=== PATIENT | male | born 1940 | race Caucasian/White ===

== ENCOUNTER 2023-09-03 06:12 | Inpatient (IN) | payer MEDICARE ==
[~2023-09-03] VITALS: Ht 167.6 cm; Wt 74.8 kg
[2023-09-03] VITALS (7 sets, daily range): BP systolic 132–157; BP diastolic 67–71; PULSE 81–96; RESP 18–20; TEMP 98.1–101.2; O2SAT 93–96
[~2023-09-03 06:12] MED LIST: AMLODIPINE BESY10 MG PO; ASPIRIN325 MG PO; COQ-10100 MG PO; FLOMAX0.4 MG PO; LIPITOR10 MG PO; Multi Vitamin PO; OMEPRAZOLE20 M1 PO; SYNTHROID100 MCG PO; VESICARE10 MG PO
[2023-09-03] MEDS ORDERED: SODIUM CHLORIDE 0.9% 1000ML 1,000 ML IV SCH (06:30)
[2023-09-03] MEDS ORDERED: KETOROLAC TROMETHAMINE 30 MG/ML VIAL IV STA (06:31)
[2023-09-03] MEDS ORDERED: SODIUM CHLORIDE 0.9% 1000ML 1,000 ML ONE (06:41)
[2023-09-03] MEDS ORDERED: CEFTRIAXONE 1 GM VIAL ONE (06:41)
[2023-09-03 06:43] LABS: BASOPHILS % 0.2 % (0.0-1.0); HEMATOCRIT 38.4 % (38.2-49.6); HEMOGLOBIN 13.2 g/dL (14.0-18.0); LYMPHOCYTES # (AUTO) 0.3 (1.0-3.2); LYMPHOCYTES % 2.9 % (18.0-39.1); MEAN CORPUSCULAR HEMOGLOBIN 31.5 pg (28-32); MEAN CORPUSCULAR HGB CONC 34.4 g/dL (31-35); MEAN CORPUSCULAR VOLUME 91.6 fL (81-99); MONOCYTES # (AUTO) 0.5 (0.2-0.8); MONOCYTES % 5.2 % (4.4-11.3); NEUTROPHILS # (AUTO) 8.6 (2.1-6.9); NEUTROPHILS % 91.2 % (38.7-80.0); PLATELET COUNT 149 x10e3/uL (140-360); RED BLOOD COUNT 4.19 x10e6/uL (4.3-5.7); RED CELL DISTRIBUTION WIDTH 13.8 % (11.7-14.4); WHITE BLOOD COUNT 9.41 x10e3/uL (4.8-10.8)
[2023-09-03] MEDS ORDERED: ACETAMINOPHEN 325 MG TAB PO ONE (06:45)
[2023-09-03 07:03] LABS: ALBUMIN 3.2 g/dL (3.5-5.0); ANION GAP 17.3 mmol/L (8-16); BILIRUBIN,TOTAL 1.6 mg/dL (0.2-1.2); CALCIUM 8.9 mg/dL (8.4-10.2); CREATININE, SERUM 1.54 mg/dL (0.72-1.25); POTASSIUM 3.3 mmol/L (3.5-5.1); TOTAL PROTEIN 6.5 g/dL (6.5-8.1)
[2023-09-03 09:00] LABS: BILIRUBIN,URINE NEGATIVE (NEGATIVE); CLARITY,URINE TURBID (CLEAR); COLOR,URINE YELLOW (YELLOW); GLUCOSE, URINE NEGATIVE (NEGATIVE); KETONES,URINE TRACE (NEGATIVE); LEUKOCYTE ESTERASE ,URINE MODERATE (NEGATIVE); NITRITE,URINE POSITIVE (NEGATIVE); PH,URINE 5.5 (5 - 7); PROTEIN,URINE DIPSTICK 2+ (NEGATIVE); URINE UROBILINOGEN 1 mg/dL (0.2 - 1)
[2023-09-03 09:03] LABS: BACTERIA,URINE MODERATE /HPF; EPITHELIAL CELLS,URINE FEW /LPF; WBC,URINE (MAN) >50 /HPF (0-5)
[2023-09-03] MEDS: SODIUM CHLORIDE 0.9% 1000ML 1,000 ML IV SCH ×3 (10:58→21:05)
[2023-09-03] MEDS ORDERED: EXCEDRIN MIGRA1 EAC3 (16:23)
[2023-09-03] MEDS ORDERED: ZEBETA10 MG PO (16:23)
[2023-09-03] MEDS ORDERED: MYRBETRIQ50 MG PO (16:23)
[2023-09-03] MEDS ORDERED: HYDROCHLOROTH12.5 MG PO (16:23)
[2023-09-03] MEDS ORDERED: PREDNISONE5 MG PO (16:23)
[2023-09-03] MEDS ORDERED: LIOTHYRONINE SO5 MCG PO (16:23)
[2023-09-03] MEDS ORDERED: PLAQUENIL200 MG PO (16:23)
[2023-09-03] MEDS ORDERED: POTASSIUM CHLORIDE 20 MEQ TAB CR PO ONE (17:25)
[2023-09-03] MEDS ORDERED: ACETAMINOPHEN 325 MG TAB PO PRN (21:00)
[2023-09-03] MEDS ORDERED: ONDANSETRON HCL INJ 2MG/ML 2ML 2 MG/ML VIAL IV PRN (21:00)
[2023-09-03] MEDS ORDERED: HYDRALAZINE HCL 20 MG/ML VIAL IV PRN (21:00)
[2023-09-03] MEDS: NIRMATRELVIR/RITONAVIR 1 EACH BOX PO SCH (21:05)
[2023-09-03] MEDS: HEPARIN SOD (PORCINE) 5,000 UNIT/ML VIAL SC SCH (21:14)
[2023-09-04] VITALS (8 sets, daily range): BP systolic 137–154; BP diastolic 65–75; PULSE 77–89; RESP 16–20; TEMP 98.9–101.2; O2SAT 93–99
[2023-09-04] MEDS: HEPARIN SOD (PORCINE) 5,000 UNIT/ML VIAL SC SCH ×3 (05:43→21:41)
[2023-09-04 06:18] LABS: BASOPHILS % 0.1 % (0.0-1.0); HEMATOCRIT 37.2 % (38.2-49.6); HEMOGLOBIN 12.7 g/dL (14.0-18.0); LYMPHOCYTES # (AUTO) 0.5 (1.0-3.2); LYMPHOCYTES % 7.3 % (18.0-39.1); MEAN CORPUSCULAR HEMOGLOBIN 31.6 pg (28-32); MEAN CORPUSCULAR HGB CONC 34.1 g/dL (31-35); MEAN CORPUSCULAR VOLUME 92.5 fL (81-99); MONOCYTES # (AUTO) 0.7 (0.2-0.8); MONOCYTES % 9.3 % (4.4-11.3); PLATELET COUNT 143 x10e3/uL (140-360); RED BLOOD COUNT 4.02 x10e6/uL (4.3-5.7); RED CELL DISTRIBUTION WIDTH 13.6 % (11.7-14.4); WHITE BLOOD COUNT 7.22 x10e3/uL (4.8-10.8)
[2023-09-04 06:44] LABS: INR 1.06; PARTIAL THROMBOPLASTIN TIME 35.4 seconds (23.8-35.5)
[2023-09-04 06:56] LABS: ALBUMIN 2.6 g/dL (3.5-5.0); ALBUMIN/GLOBULIN RATIO 0.8 (0.8-2.0); ANION GAP 16.7 mmol/L (8-16); BILIRUBIN,TOTAL 1.1 mg/dL (0.2-1.2); CALCIUM 8.1 mg/dL (8.4-10.2); CREATININE, SERUM 1.03 mg/dL (0.72-1.25); POTASSIUM 3.7 mmol/L (3.5-5.1); TOTAL PROTEIN 5.7 g/dL (6.5-8.1)
[2023-09-04] MEDS: SODIUM CHLORIDE 0.9% 1000ML 1,000 ML IV SCH ×3 (10:05→21:35)
[2023-09-04] MEDS: SENNOSIDES 8.6 MG TAB PO SCH (10:05)
[2023-09-04] MEDS: DOCUSATE SODIUM 100 MG CAP PO SCH (10:05)
[2023-09-04] MEDS: NIRMATRELVIR/RITONAVIR 1 EACH BOX PO SCH ×2 (10:13→21:31)
[2023-09-05] VITALS (8 sets, daily range): BP systolic 138–164; BP diastolic 67–84; PULSE 65–79; RESP 18–20; TEMP 98–98.9; O2SAT 94–97
[2023-09-05] MEDS: HEPARIN SOD (PORCINE) 5,000 UNIT/ML VIAL SC SCH ×3 (04:57→21:41)
[2023-09-05 06:03] LABS: BASOPHILS % 0.2 % (0.0-1.0); EOSINOPHILS % 0.6 % (0.0-6.0); HEMATOCRIT 32.7 % (38.2-49.6); HEMOGLOBIN 11.3 g/dL (14.0-18.0); LYMPHOCYTES # (AUTO) 0.5 (1.0-3.2); LYMPHOCYTES % 9.9 % (18.0-39.1); MEAN CORPUSCULAR HEMOGLOBIN 31.2 pg (28-32); MEAN CORPUSCULAR HGB CONC 34.6 g/dL (31-35); MEAN CORPUSCULAR VOLUME 90.3 fL (81-99); MONOCYTES # (AUTO) 0.7 (0.2-0.8); MONOCYTES % 15.6 % (4.4-11.3); NEUTROPHILS # (AUTO) 3.5 (2.1-6.9); NEUTROPHILS % 73.3 % (38.7-80.0); PLATELET COUNT 135 x10e3/uL (140-360); RED BLOOD COUNT 3.62 x10e6/uL (4.3-5.7); RED CELL DISTRIBUTION WIDTH 13.4 % (11.7-14.4); WHITE BLOOD COUNT 4.75 x10e3/uL (4.8-10.8)
[2023-09-05 06:29] LABS: ALBUMIN 2.2 g/dL (3.5-5.0); ALBUMIN/GLOBULIN RATIO 0.8 (0.8-2.0); ANION GAP 13.4 mmol/L (8-16); CALCIUM 7.9 mg/dL (8.4-10.2); CREATININE, SERUM 0.83 mg/dL (0.72-1.25); MAGNESIUM 1.8 MG/DL (1.3-2.1); POTASSIUM 3.4 mmol/L (3.5-5.1)
[2023-09-05] MEDS ORDERED: HYDRALAZINE HCL 20 MG/ML VIAL IV PRN (08:30)
[2023-09-05] MEDS: SENNOSIDES 8.6 MG TAB PO SCH (09:00)
[2023-09-05] MEDS: DOCUSATE SODIUM 100 MG CAP PO SCH (09:00)
[2023-09-05] MEDS: LIOTHYRONINE SODIUM 5 MCG TAB PO SCH (09:58)
[2023-09-05] MEDS: BISOPROLOL FUMARATE 10 MG TAB PO SCH (09:58)
[2023-09-05] MEDS: HYDROCHLOROTHIAZIDE 25 MG TAB PO SCH (09:59)
[2023-09-05] MEDS: MEROPENEM 1 GM in SODIUM CHLORIDE 0.9% 100 ML IV SCH ×2 (10:00→17:58)
[2023-09-05] MEDS: PANTOPRAZOLE SOD 40 MG TABEC PO SCH (10:00)
[2023-09-05] MEDS: AMLODIPINE BESYLATE 10 MG TAB PO SCH (10:00)
[2023-09-05] MEDS: NIRMATRELVIR/RITONAVIR 1 EACH BOX PO SCH ×2 (10:02→21:00)
[2023-09-05] MEDS: SODIUM CHLORIDE 0.9% 1000ML 1,000 ML IV SCH ×2 (10:03→17:58)
[2023-09-05] MEDS: LEVOTHYROXINE SODIUM 100 MCG TAB PO SCH (10:07)
[2023-09-05] MEDS ORDERED: ONDANSETRON HCL 4 MG ORAL DISINTEGRATING TAB PO PRN (11:30)
[2023-09-05] MEDS ORDERED: POTASSIUM CHLORIDE 20 MEQ TAB CR PO ONE (11:45)
[2023-09-06] VITALS (8 sets, daily range): BP systolic 133–156; BP diastolic 70–79; PULSE 60–81; RESP 17–20; TEMP 97.8–98.7; O2SAT 96–98
[2023-09-06] MEDS: MEROPENEM 1 GM in SODIUM CHLORIDE 0.9% 100 ML IV SCH ×3 (01:45→16:51)
[2023-09-06] MEDS: SODIUM CHLORIDE 0.9% 1000ML 1,000 ML IV SCH ×3 (01:47→16:51)
[2023-09-06] MEDS: HEPARIN SOD (PORCINE) 5,000 UNIT/ML VIAL SC SCH ×3 (06:08→21:02)
[2023-09-06] MEDS: LIOTHYRONINE SODIUM 5 MCG TAB PO SCH (06:14)
[2023-09-06] MEDS: LEVOTHYROXINE SODIUM 100 MCG TAB PO SCH (06:14)
[2023-09-06 06:45] LABS: BASOPHILS % 0.4 % (0.0-1.0); EOSINOPHILS # (AUTO) 0.1 (0.0-0.4); EOSINOPHILS % 2.3 % (0.0-6.0); HEMATOCRIT 38.6 % (38.2-49.6); HEMOGLOBIN 13.1 g/dL (14.0-18.0); LYMPHOCYTES # (AUTO) 0.8 (1.0-3.2); LYMPHOCYTES % 16.6 % (18.0-39.1); MEAN CORPUSCULAR HEMOGLOBIN 30.8 pg (28-32); MEAN CORPUSCULAR HGB CONC 33.9 g/dL (31-35); MEAN CORPUSCULAR VOLUME 90.8 fL (81-99); MONOCYTES # (AUTO) 0.7 (0.2-0.8); MONOCYTES % 15.4 % (4.4-11.3); NEUTROPHILS % 64.4 % (38.7-80.0); PLATELET COUNT 153 x10e3/uL (140-360); RED BLOOD COUNT 4.25 x10e6/uL (4.3-5.7); RED CELL DISTRIBUTION WIDTH 13.7 % (11.7-14.4); WHITE BLOOD COUNT 4.69 x10e3/uL (4.8-10.8)
[2023-09-06 07:04] LABS: ALBUMIN 2.7 g/dL (3.5-5.0); ALBUMIN/GLOBULIN RATIO 0.8 (0.8-2.0); ANION GAP 15.8 mmol/L (8-16); BILIRUBIN,TOTAL 1.4 mg/dL (0.2-1.2); CALCIUM 8.6 mg/dL (8.4-10.2); CREATININE, SERUM 0.86 mg/dL (0.72-1.25); POTASSIUM 3.8 mmol/L (3.5-5.1); TOTAL PROTEIN 6.1 g/dL (6.5-8.1)
[2023-09-06] MEDS: PANTOPRAZOLE SOD 40 MG TABEC PO SCH (09:23)
[2023-09-06] MEDS: BISOPROLOL FUMARATE 10 MG TAB PO SCH (09:23)
[2023-09-06] MEDS: AMLODIPINE BESYLATE 10 MG TAB PO SCH (09:24)
[2023-09-06] MEDS: HYDROCHLOROTHIAZIDE 25 MG TAB PO SCH (09:24)
[2023-09-06] MEDS: NIRMATRELVIR/RITONAVIR 1 EACH BOX PO SCH ×2 (09:25→21:05)
[2023-09-06] MEDS: OXYBUTYNIN CHLORIDE 5 MG TAB PO SCH (12:30)
[2023-09-06] MEDS ORDERED: IOPAMIDOL 370 MG/ML 100 ML INFUS..BTL INJ ONE (13:44)
[2023-09-07] MEDS: SODIUM CHLORIDE 0.9% 1000ML 1,000 ML IV SCH (01:50)
[2023-09-07] MEDS: MEROPENEM 1 GM in SODIUM CHLORIDE 0.9% 100 ML IV SCH ×2 (01:50→09:26)
[2023-09-07 04:00] VITALS: BP 159/75; PULSE 66; RESP 18; TEMP 98.5; O2SAT 97
[2023-09-07] MEDS: LEVOTHYROXINE SODIUM 100 MCG TAB PO SCH (05:09)
[2023-09-07] MEDS: LIOTHYRONINE SODIUM 5 MCG TAB PO SCH (05:09)
[2023-09-07] MEDS: HEPARIN SOD (PORCINE) 5,000 UNIT/ML VIAL SC SCH ×2 (05:15→14:00)
[2023-09-07 05:44] LABS: BASOPHILS % 0.5 % (0.0-1.0); EOSINOPHILS # (AUTO) 0.2 (0.0-0.4); HEMATOCRIT 32.3 % (38.2-49.6); LYMPHOCYTES # (AUTO) 0.8 (1.0-3.2); LYMPHOCYTES % 22.2 % (18.0-39.1); MEAN CORPUSCULAR HEMOGLOBIN 31.1 pg (28-32); MEAN CORPUSCULAR HGB CONC 34.1 g/dL (31-35); MEAN CORPUSCULAR VOLUME 91.2 fL (81-99); MONOCYTES # (AUTO) 0.7 (0.2-0.8); MONOCYTES % 18.2 % (4.4-11.3); PLATELET COUNT 159 x10e3/uL (140-360); RED BLOOD COUNT 3.54 x10e6/uL (4.3-5.7); RED CELL DISTRIBUTION WIDTH 13.7 % (11.7-14.4); WHITE BLOOD COUNT 3.74 x10e3/uL (4.8-10.8)
[2023-09-07 06:14] LABS: ALBUMIN 2.3 g/dL (3.5-5.0); ALBUMIN/GLOBULIN RATIO 0.9 (0.8-2.0); ANION GAP 11.7 mmol/L (8-16); BILIRUBIN,TOTAL 0.8 mg/dL (0.2-1.2); CALCIUM 7.8 mg/dL (8.4-10.2); CREATININE, SERUM 0.82 mg/dL (0.72-1.25); MAGNESIUM 1.7 MG/DL (1.3-2.1); POTASSIUM 3.7 mmol/L (3.5-5.1); TOTAL PROTEIN 4.9 g/dL (6.5-8.1)
[2023-09-07 08:00] VITALS: BP 156/69; PULSE 62; RESP 17; TEMP 98.2; O2SAT 97
[2023-09-07 08:26] VITALS: BP 156/67; PULSE 62; RESP 17; TEMP 98.2; O2SAT 97
[2023-09-07] MEDS: NIRMATRELVIR/RITONAVIR 1 EACH BOX PO SCH (09:00)
[2023-09-07] MEDS: BISOPROLOL FUMARATE 10 MG TAB PO SCH (09:26)
[2023-09-07] MEDS: AMLODIPINE BESYLATE 10 MG TAB PO SCH (09:27)
[2023-09-07] MEDS: PANTOPRAZOLE SOD 40 MG TABEC PO SCH (09:27)
[2023-09-07] MEDS: HYDROCHLOROTHIAZIDE 25 MG TAB PO SCH (09:28)
[2023-09-07] MEDS: OXYBUTYNIN CHLORIDE 5 MG TAB PO SCH (09:28)
[2023-09-07] MEDS ORDERED: CEPHALEXIN500 MG PO (12:27)
[2023-09-07] MEDS ORDERED: FOSFOMYCIN TROMETHAMINE 3 GM PACKET PO ONE (13:30)
[2023-09-07 13:31] VITALS: BP 133/69; PULSE 61; RESP 18; TEMP 98; O2SAT 95
[2023-09-07] MEDS ORDERED: CEPHALEXIN 500 MG CAP PO SCH (14:00)
[2023-09-07 15:50] VITALS: BP 140/69; PULSE 69; RESP 18; TEMP 98.2; O2SAT 97
== END 2023-09-07 16:35 | disposition home or self-care (01) | DRG 871 ==
LOC: ER 06:19 → ERHOLD 09:14 → MED/SURG3 14:30 → OBSVTOIN 09-04 11:46
PROVIDERS: ADMIT Internal Medicine; ATTEND Internal Medicine
DX: A41.51 Sepsis due to Escherichia coli [E. coli] (principal); G93.41 Metabolic encephalopathy; U07.1 COVID-19; N39.0 Urinary tract infection, site not specified; N17.9 Acute kidney failure, unspecified; E87.20 Acidosis, unspecified; N12 Tubulo-interstitial nephritis, not specified as acute or chronic; Z16.12 Extended spectrum beta lactamase (ESBL) resistance; B96.20 Unspecified Escherichia coli [E. coli] as the cause of diseases classified elsewhere; E03.9 Hypothyroidism, unspecified; I45.10 Unspecified right bundle-branch block; B96.1 Klebsiella pneumoniae [K. pneumoniae] as the cause of diseases classified elsewhere; E87.6 Hypokalemia; M06.9 Rheumatoid arthritis, unspecified; I12.9 Hypertensive chronic kidney disease with stage 1 through stage 4 chronic kidney disease, or unspecified chronic kidney disease; N18.9 Chronic kidney disease, unspecified; Z79.82 Long term (current) use of aspirin
CPT/HCPCS: 36415; 70450; 71045; 74177; 80053; 81001; 83605; 83735; 84439; 84443; 84480; 84481; 85025; 85610; 85730; 87040; 87071; 87086; 87186; 87205; 93005; 94799; 96361; 99252; 99284; G0378; J0696; J1644; J1885; J2185; J7030; J7050; Q9967; U0002